=== PATIENT | female | born 1965 | race Caucasian/White ===

== ENCOUNTER 2019-11-29 16:48 | Observation (INO) | payer BC ==
[~2019-11-29] VITALS: Ht 170.2 cm; Wt 59.6 kg
[2019-11-29 17:42] LABS: COLLECTION METHOD CLEAN CATCH
[2019-11-29 17:48] LABS: BASO # 0.1 (0.0-0.2); BASO % 0.4 % (0.0-2.0); EOS # 0.1 (0.0-0.7); EOS % 0.9 % (0-4.0); GRAN # 11.1 (1.4-6.5); GRAN % 78.7 % (42.2-75.2); HEMATOCRIT 38.6 % (37.0-47.0); HEMOGLOBIN 11.8 g/dl (12.5-16.0); LYMPH # 1.7 (1.2-3.4); MEAN CELL VOLUME 78 fl (80.0-100.0); MEAN CORPUSCULAR HEMOGLOBIN 24 pg (27.0-31.0); MEAN CORPUSCULAR HGB CONC 31 g/dl (33.0-37.0); MEAN PLATELET VOLUME 9.9 fl (7.4-10.4); MONO # 1.1 (0.1-0.6); MONO % 7.7 % (1.7-9.3); PLATELET COUNT 362 K/mm3 (130-400); RED BLOOD COUNT 4.93 M/mm3 (4.10-5.30); REDCELL DISTRIBUTION WIDTH-CV 12.9 % (11.5-14.5)
[2019-11-29 17:51] LABS: PH 7 (5-8); SQUAMOUS EPITHELIAL None Seen /hpf; URINE APPEARANCE Clear; URINE BACTERIA None Seen /hpf; URINE BILIRUBIN Negative (NEGATIVE); URINE BLOOD Negative (NEGATIVE); URINE COLOR Straw; URINE GLUCOSE Negative (NEGATIVE); URINE KETONE Negative (NEGATIVE); URINE LEUKOCYTE ESTERASE Negative (NEGATIVE); URINE NITRATE Negative (NEGATIVE); URINE PROTEIN(semi-quant) Negative (NEGATIVE); URINE RBC 0-2 /hpf; URINE UROBILINOGEN Negative (NEGATIVE)
[2019-11-29 17:57] LABS: ALBUMIN 4.5 gm/dL (3.5-5.0); BILIRUBIN,TOTAL 0.4 mg/dL (0.0-1.0); CALCIUM 9.8 mg/dL (8.4-10.2); CREATININE, serum 0.74 (0.52-1.25); POTASSIUM 3.7 mmol/L (3.4-5.0); TOTAL PROTEIN 7.9 gm/dL (6.4-8.2)
[2019-11-29] MEDS ORDERED: SEPTRA DS 8001 TAB PO (18:07)
[2019-11-29] MEDS ORDERED: XANAX .25M0.25 MG/TA PO (18:07)
[2019-11-29] MEDS ORDERED: MACROBID 1100 MG/CAP PO (18:08)
[2019-11-29 21:34] VITALS: BP 96/52; PULSE 72; TEMP 99.9
[2019-11-29] MEDS ORDERED: TYLENOL 325MG325 MG PO (21:51)
[2019-11-29] MEDS ORDERED: BENADRYL50 MG PO (21:52)
[2019-11-30] VITALS: BP 96/54; PULSE 73; TEMP 98.6
[2019-11-30 04:08] VITALS: BP 91/51; PULSE 72; TEMP 99.3
[2019-11-30 06:54] LABS: HEMOGLOBIN 10.6 g/dl (12.5-16.0); MEAN CELL VOLUME 78 fl (80.0-100.0); MEAN CORPUSCULAR HEMOGLOBIN 24 pg (27.0-31.0); MEAN CORPUSCULAR HGB CONC 31 g/dl (33.0-37.0); MEAN PLATELET VOLUME 10.5 fl (7.4-10.4); PLATELET COUNT 315 K/mm3 (130-400); RED BLOOD COUNT 4.39 M/mm3 (4.10-5.30); REDCELL DISTRIBUTION WIDTH-CV 13.1 % (11.5-14.5)
[2019-11-30 06:58] LABS: HEMATOCRIT 34.4 % (37.0-47.0)
[2019-11-30 07:11] LABS: ALBUMIN 3.6 gm/dL (3.5-5.0); BILIRUBIN,TOTAL 0.7 mg/dL (0.0-1.0); CREATININE, serum 0.76 (0.52-1.25); POTASSIUM 3.7 mmol/L (3.4-5.0); TOTAL PROTEIN 6.4 gm/dL (6.4-8.2)
[2019-11-30 07:25] LABS: BAND 2 % (0-10); LYMPHOCYTE 15 % (20.0-51.0); NEUTROPHILS 75 % (42.0-75.2); PLATELET ESTIMATE NORMAL (NORMAL)
[2019-11-30 07:29] LABS: C-REACTIVE PROTEIN 19.2 mg/dL (0.0-0.9)
[2019-11-30 08:02] VITALS: BP 101/63; PULSE 81; TEMP 98.9
[2019-11-30 11:42] VITALS: BP 111/60; PULSE 75; TEMP 98.1
--- NOTE | 2019-11-30 13:44 | NUR ---
Coding Technician offered prayer and support with patient while spouse was in room.
[2019-11-30 16:15] VITALS: BP 114/64; PULSE 88; TEMP 102.5
--- NOTE | 2019-11-30 17:49 | NUR ---
Patient resting in bed at this time, using warmed bath wipes to freshen up. Patient remains alert and oriented. Called report to nurse at recieving facility. Patient denies needs at this time, call light within reach.
--- NOTE | 2019-11-30 19:17 | NUR ---
EMS arrived to floor, patient transferred independently from bed to stretcher. Administered PRN pain medication prior to departure. Report given to EMS, denied further questions. Patient denied questions or needs.
== END 2019-11-30 19:19 | disposition short-term general hospital (02) ==
LOC: COL.ER 16:48 → SURG 19:33
PROVIDERS: Family Medicine; ADMIT Surgery
DX: K62.89 Other specified diseases of anus and rectum (principal); R10.9 Unspecified abdominal pain; D72.829 Elevated white blood cell count, unspecified; R50.9 Fever, unspecified; D64.9 Anemia, unspecified; E87.1 Hypo-osmolality and hyponatremia; Z90.710 Acquired absence of both cervix and uterus; Z79.899 Other long term (current) drug therapy
CPT/HCPCS: G0378; J1170; J2270; J2543; J7120; Q9967

== ENCOUNTER 2019-12-24 20:11 | Emergency (ER) | payer BC ==
[~2019-12-24 20:11] MED LIST: BENADRYL50 MG PO; MACROBID 1100 MG/CAP PO; SEPTRA DS 8001 TAB PO; TYLENOL 325MG325 MG PO; XANAX .25M0.25 MG/TA PO
[2019-12-24 20:25] VITALS: TEMP 97.2
[2019-12-24 21:06] LABS: BASO # 0.1 (0.0-0.2); BASO % 0.7 % (0.0-2.0); EOS # 0.6 (0.0-0.7); EOS % 4.1 % (0-4.0); GRAN % 65.7 % (42.2-75.2); HEMATOCRIT 37.1 % (37.0-47.0); HEMOGLOBIN 11.2 g/dl (12.5-16.0); LYMPH # 2.8 (1.2-3.4); LYMPH % 20.8 % (20.0-51.0); MEAN CELL VOLUME 77 fl (80.0-100.0); MEAN CORPUSCULAR HEMOGLOBIN 23 pg (27.0-31.0); MEAN CORPUSCULAR HGB CONC 30 g/dl (33.0-37.0); MEAN PLATELET VOLUME 9.1 fl (7.4-10.4); MONO # 1.1 (0.1-0.6); MONO % 8.4 % (1.7-9.3); PLATELET COUNT 485 K/mm3 (130-400); RED BLOOD COUNT 4.83 M/mm3 (4.10-5.30); REDCELL DISTRIBUTION WIDTH-CV 13.7 % (11.5-14.5)
[2019-12-24 21:15] LABS: ALBUMIN 3.9 gm/dL (3.5-5.0); BILIRUBIN,TOTAL 0.4 mg/dL (0.0-1.0); C-REACTIVE PROTEIN 3.8 mg/dL (0.0-0.9); CALCIUM 9.3 mg/dL (8.4-10.2); CREATININE, serum 0.73 (0.52-1.25); POTASSIUM 4.6 mmol/L (3.4-5.0); TOTAL PROTEIN 7.2 gm/dL (6.4-8.2)
[2019-12-24 21:55] VITALS: BP 107/71; PULSE 67
== END 2019-12-24 22:00 | disposition home or self-care (01) ==
LOC: COL.ER 20:11
PROVIDERS: Emergency Medicine
DX: K94.09 Other complications of colostomy (principal); C19 Malignant neoplasm of rectosigmoid junction; Z90.710 Acquired absence of both cervix and uterus
CPT/HCPCS: J2405; J3010; J7030

== ENCOUNTER 2020-02-04 11:07 | Emergency (ER) | payer BC ==
[~2020-02-04] VITALS: Ht 172.7 cm; Wt 59.5 kg
[2020-02-04 11:10] VITALS: TEMP 99.2
[2020-02-04 11:43] LABS: HEMATOCRIT 39.3 % (37.0-47.0); HEMOGLOBIN 12.1 g/dl (12.5-16.0); MEAN CELL VOLUME 79 fl (80.0-100.0); MEAN CORPUSCULAR HEMOGLOBIN 24 pg (27.0-31.0); MEAN CORPUSCULAR HGB CONC 31 g/dl (33.0-37.0); MEAN PLATELET VOLUME 8.6 fl (7.4-10.4); PLATELET COUNT 214 K/mm3 (130-400); RED BLOOD COUNT 4.96 M/mm3 (4.10-5.30); REDCELL DISTRIBUTION WIDTH-CV 21.5 % (11.5-14.5)
[2020-02-04 11:51] LABS: ALBUMIN 4.4 gm/dL (3.5-5.0); BILIRUBIN,TOTAL 0.6 mg/dL (0.0-1.0); CALCIUM 9.3 mg/dL (8.4-10.2); CREATININE, serum 0.72 (0.52-1.25); POTASSIUM 4.3 mmol/L (3.4-5.0); TOTAL PROTEIN 7.6 gm/dL (6.4-8.2)
[2020-02-04 12:10] LABS: COLLECTION METHOD CLEAN CATCH
[2020-02-04 12:10] LABS: EOSINOPHIL 1 % (0-4); LYMPHOCYTE 33 % (20.0-51.0); METAMYELOCYTE 1 % (0-0); NEUTROPHILS 46 % (42.0-75.2); PLATELET ESTIMATE NORMAL (NORMAL)
[2020-02-04 12:12] LABS: ANISOCYTOSIS 2+
[2020-02-04 12:20] LABS: PH 6 (5-8); SQUAMOUS EPITHELIAL None Seen /hpf; URINE APPEARANCE Clear; URINE BACTERIA None Seen /hpf; URINE BILIRUBIN Negative (NEGATIVE); URINE BLOOD Negative (NEGATIVE); URINE COLOR Yellow; URINE GLUCOSE Negative (NEGATIVE); URINE KETONE Negative (NEGATIVE); URINE LEUKOCYTE ESTERASE Negative (NEGATIVE); URINE NITRATE Negative (NEGATIVE); URINE PROTEIN(semi-quant) Negative (NEGATIVE); URINE RBC 0-2 /hpf; URINE UROBILINOGEN Negative (NEGATIVE)
[2020-02-04] MEDS ORDERED: XTAMPZA ER13.5 MG PO ×2 (13:27→13:30)
[2020-02-04] MEDS ORDERED: ELIQUIS 5MG PO (13:30)
[2020-02-04] MEDS ORDERED: ROXICODONE 55 MG/TAB PO (13:38)
[2020-02-04] MEDS ORDERED: XTAMPZA ER9 MG PO (13:40)
[2020-02-04 14:50] VITALS: BP 89/60; PULSE 83
== END 2020-02-04 14:50 | disposition home or self-care (01) ==
LOC: COL.ER 11:07
PROVIDERS: Emergency Medicine
DX: I26.99 Other pulmonary embolism without acute cor pulmonale (principal); C20 Malignant neoplasm of rectum; C78.7 Secondary malignant neoplasm of liver and intrahepatic bile duct; C78.00 Secondary malignant neoplasm of unspecified lung
CPT/HCPCS: J1170; J1650; J1885; J7030; Q9967

== ENCOUNTER → 2021-06-23 | Outpatient (CLI) | payer BC ==
[~2021-06-23] VITALS: Ht 172.7 cm; Wt 50.8 kg
[~2021-06-23] MED LIST changes: +ELIQUIS 5MG PO; +LOMOTIL 0.025 M1 TAB PO; +MULTI VITAMINS1 TAB PO; +ROXICODONE 55 MG/TAB PO; +ULTRAM 50MG TAB50 MG PO; +VITAMIND3 5000 PO; +XTAMPZA ER13.5 MG PO; +XTAMPZA ER9 MG PO; +ZOFRAN8 MG PO
[2021-06-23 12:30] VITALS: BP 142/97; PULSE 74; TEMP 97.8
--- NOTE | 2021-06-23 13:14 | NUR ---
procedure cancelled due to no fluid.
== END ==
LOC: COL.RAD 06-18 12:00
DX: C20 Malignant neoplasm of rectum (principal)